=== PATIENT | male | born 1955 | race Caucasian/White ===

== ENCOUNTER 2019-05-16 01:22 | Inpatient (IN) | payer MEDICARE, OTHER ==
[2019-05-16] MEDS ORDERED: Morphine 4 MG/ML VIAL ONE (02:07)
[2019-05-16] MEDS ORDERED: Ondansetron PF 4 MG/2 ML Vial IVP PRN (03:57)
[2019-05-16] MEDS ORDERED: Acetaminophen 325 MG TAB PO PRN (03:57)
[2019-05-16] MEDS ORDERED: Sodium Chloride 0.9% 1,000 ML IV SCH (03:57)
[2019-05-16] MEDS ORDERED: Ondansetron ODT 4 MG TAB SL PRN (03:57)
[2019-05-16 08:25] LABS: Hemoglobin 8.8 g/dL (14.0-18.0); Reticulocyte Count 6.9 % (0.5-1.5)
[2019-05-16] MEDS ORDERED: Pantoprazole 40 MG VIAL IVP SCH (08:30)
--- NOTE | 2019-05-16 08:31 | PDOC.HHP ---
Hospitalist HPI - History of Present Illness Abdominal pain and constipation History of Present Illness: 63 yo male with lung and throat cancer presented to ER in [place] due to 6/10 lower abdominal pain x 2 days that is a pressure like sensation without radiation. No aggravating or relieving factors. He reports chronic black stools that he attributes to iron tablets. Reports nausea but no vomiting. Reports constipation. He was found to have anemia and FOBT +ve in ER and has been transferred to the current hospital. No fever, chills. Reports worsening SOB. No CP, palpitations, lightheadedness. Reports cough without sputum, wheezing. Reports urinary urgency and frequency. No burning or pain with urination. No blood in stools or urine. No hematemesis. No headache or changes in his vision. Lives alone and uses cane and walker. No recent sick contacts, travel history or eating out. Hospitalist ROS - Review of Systems All other systems reviewed; all pertinent +/- noted in HPI/Subj - Medication Medications: Active Medications Generic Name Dose Route Start Last Admin Trade Name Freq PRN Reason Stop Dose Admin Sodium Chloride 1,000 mls @ 125 mls/hr 05/16/19 03:57 05/16/19 04:00 Normal Saline 0.9% IV 05/16/19 15:00 1,000 mls .Q8H GLO Administration Hospitalist History - Past Medical History Source: patient, old records Cardiac: reports: CAD, HTN, ID, Hyperlipidemia Pulmonary: reports: COPD BAND LEADER: reports: CVA Gastrointestinal: reports: Constipation, GERD Heme/Onc: reports: Cancer (lung and throat) - Past Surgical History Other Surgical History: Left CEA Right lung biopsy - Family History Other Family History: Reviewed. not pertinent - Social History Smoking Status: Current every day smoker (1 PPD) Tobacco Type: cigarettes Alcohol: reports: Heavy (4 beers/day) Living Situation: Alone Activity level: uses cane/walker - Exam General Appearance: awake alert, ill appearing Eye: PERRL, anicteric sclera ENT: normocephalic atraumatic, dry oral mucosa Neck: supple, no JVD, no thyromegaly, no lymphadenopathy Heart: no murmur, no gallops, no rubs, normal peripheral pulses Heart - other findings: tachycardia present Respiratory - other findings: Reduced air entry bilaterally; Not using accessory muscles of respiration Gastrointestinal: soft, normal bowel sounds, no palpable masses, no guarding, no rigidity, tender to palpation (RLQ & LLQ) Extremities: no cyanosis, no clubbing, no edema Skin: normal turgor, no lesions, no rashes Skin - other findings: No decubitus ulcers; warm to touch Neurological: normal sensation to touch, no weakness Neurological - other findings: Left face deviation Musculoskeletal: normal tone, normal strength, diffuse muscle atrophy Psychiatric: normal behavior, A&O x 3 Psychiatric - other findings: appears anxious Hospitalist Results - Labs Result Diagrams: 05/16/19 07:40 Lab results: Hgb 8.8 g/dL (14.0-18.0) L 05/16/19 07:40 Hct 25.6 % (42.0-52.0) L 05/16/19 07:40 Additional comment: Lab reviewed. Hb 6. Sodium 126. FOBT +ve - Radiology Interpretation CT scan - abdomen Status: report reviewed by me (Bilateral pleural effusions; Constipation; distention of urinary bladder) Hospitalist H&P A/P - Problem (1) Anemia Code(s): D64.9 - ANEMIA, UNSPECIFIED Status: Acute Qualifiers: Other causes of anemia: acute posthemorrhagic Assessment and Plan: Likely related to GI bleed Has elevated retic count Admit to inpatient High risk due to risk of hemorrhagic shock Received 1 units Transfuse 2 more units due to CAD history Expected to stay 2 midnights Monitor H&H Q6h (2) Melena Code(s): K92.1 - MELENA Status: Acute Assessment and Plan: GI consulted NPO for now Accountant H&H Q6h Protonix bolus and drip Hold ASA & plavix IV fluids and PRBC transfusion (3) Respiratory failure Code(s): J96.90 - RESPIRATORY FAILURE, UNSP, UNSP W HYPOXIA OR HYPERCAPNIA Status: Chronic Qualifiers: Chronicity: chronic Respiratory failure complication: hypoxia Qualified Code(s): J96.11 - Chronic respiratory failure with hypoxia Assessment and Plan: Continue oxygen at 3L/mini Maintain sats 88-92% (4) GERD (gastroesophageal reflux disease) Code(s): K21.9 - GASTRO-ESOPHAGEAL REFLUX DISEASE WITHOUT ESOPHAGITIS Status: Chronic Qualifiers: Esophagitis presence: esophagitis presence not specified Qualified Code(s) : K21.9 - Gastro-esophageal reflux disease without esophagitis Assessment and Plan: Protonix drip for melena (5) HTN (hypertension) Code(s): I10 - ESSENTIAL (PRIMARY) HYPERTENSION Status: Chronic Qualifiers: Hypertension type: essential hypertension Qualified Code(s): I10 - Essential (primary) hypertension Assessment and Plan: Hold anti-HTN due to risk of hemorrhagic shock due to his GI bleed (6) CAD (coronary artery disease) Code(s): I25.10 - ATHSCL HEART DISEASE OF [place] CORONARY ARTERY W/O ANG PCTRS Status: Chronic Qualifiers: Coronary Disease-Associated Artery/Lesion type: [place] artery [place] vs. transplanted heart: [place] heart Associated angina: without angina Qualified Code(s): I25.10 - Atherosclerotic heart disease of [place] coronary artery without angina pectoris Assessment and Plan: He states never had a stent placed Cardio is Dr. José in [place] troponins Check EKG and ECHO Hold ASA & plavix due to GI bleed May need cardio opinion regarding future use (7) COPD (chronic obstructive pulmonary disease) Status: Chronic Qualifiers: COPD type: unspecified COPD Qualified Code(s): J44.9 - Chronic obstructive pulmonary disease, unspecified Assessment and Plan: Not in exacerbation Duonebs PRN (8) Dyslipidemia Code(s): E78.5 - HYPERLIPIDEMIA, UNSPECIFIED Status: Chronic Assessment and Plan: Hold statin therapy for now (9) History of CVA (cerebrovascular accident) Code(s): Z86.73 - PRSNL HX OF TIA (TIA), AND CEREB INFRC W/O RESID DEFICITS Status: Chronic Assessment and Plan: With residual right facial weakness Hold anticoagulants and statin for now (10) Lung cancer Code(s): C34.90 - MALIGNANT NEOPLASM OF UNSP PART OF UNSP BRONCHUS OR LUNG Status: Chronic Qualifiers: Laterality: unspecified laterality Lung location: unspecified part of lung Qualified Code(s): C34.90 - Malignant neoplasm of unspecified part of unspecified bronchus or lung Assessment and Plan: Has lung cancer and new diagnosis of throat cancer at [facility] last week On chemo Out pt. oncology follow up (11) Tobacco abuse Code(s): Z72.0 - TOBACCO USE Status: Chronic Assessment and Plan: Counselled regarding cessation Not willing to quit Nicotine patch PRN (12) Alcohol abuse Code(s): F10.10 - ALCOHOL ABUSE, UNCOMPLICATED Status: Chronic Assessment and Plan: Denies history of DTs or ETOH withdrawal seizures Monitor on telemetry Librium & ativan PRN withdrawals
[2019-05-16] MEDS ORDERED: Morphine 2 MG/ML SYRINGE SLOW IVP PRN (08:34)
[2019-05-16] MEDS ORDERED: Prevnar 13-Val Conj/PF 0.5 ML SYRINGE IM ONE (09:00)
[2019-05-16] MEDS ORDERED: chlordiazePOXIDE HCl 25 MG CAP PO PRN (09:07)
[2019-05-16] MEDS ORDERED: Nicotine 14 MG PATCH TD PRN (09:07)
[2019-05-16] MEDS ORDERED: Lorazepam 2 MG/ML VIAL SLOW IVP PRN (09:07)
[2019-05-16] MEDS: Sodium Chloride 0.9% 1,000 ML IV SCH (10:25)
[2019-05-16] MEDS: Pantoprazole 80 MG in Sodium Chloride 0.9% 100 ML IVP SCH ×2 (10:26→10:27)
[2019-05-16 11:43] VITALS: BMI 18.7
[2019-05-16 11:51] LABS: ALT (SGPT) 27 U/L (8-55); AST (SGOT) 17 U/L (5-34); Albumin 3.6 g/dL (3.4-4.8); Alkaline Phosphatase 78 U/L (40-110); Anion Gap 11 mmol/L (10-20); BUN (Urea Nitrogen) 11 mg/dL (8.4-25.7); Bilirubin, Total 0.8 mg/dL (0.2-1.2); Calc. Creatinine Clearance 93 mL/min (70-130); Calcium 8.7 mg/dL (7.8-10.44); Carbon Dioxide 25 mmol/L (23-31); Chloride 97 mmol/L (98-107); Estimated GFR-MDRD Greater than 90; Globulin 2.5 g/dL (2.4-3.5); Glucose 104 mg/dL (80-115); Potassium 3.8 mmol/L (3.5-5.1); Protein, Total 6.1 g/dL (5.8-8.1); Sodium 129 mmol/L (136-145)
[2019-05-16 12:09] LABS: Troponin I 0.011 ng/mL (< 0.028)
[2019-05-16 12:33] LABS: Anisocytosis SLIGHT = 6-15 cells (100X) (0-5/hpf); Eosinophils 1 % (0-10); Hemoglobin 8.5 g/dL (14.0-18.0); Lymphocytes 10 % (21-51); MDiff Complete? YES; Mean Corpuscular Hemoglobin 32.6 pg (27.0-31.0); Mean Corpuscular Volume 93.3 fL (78.0-98.0); Mean Platelet Volume 6.5 fL (7.4-10.4); Monocytes 14 % (0-10); Neutrophil 74 % (42-75); Platelet Count 313 thou/uL (130-400); Platelet Morphology Comment Appears Adequate; RBC Distribution Width 15.1 % (11.5-14.5); Red Blood Cell (RBC) Count 2.61 mill/uL (4.70-6.10)
[2019-05-16 14:32] LABS: Hemoglobin 7.7 g/dL (14.0-18.0)
[2019-05-16 14:53] LABS: Anion Gap 9 mmol/L (10-20); BUN (Urea Nitrogen) 9 mg/dL (8.4-25.7); Calc. Creatinine Clearance 108 mL/min (70-130); Calcium 8.4 mg/dL (7.8-10.44); Carbon Dioxide 27 mmol/L (23-31); Chloride 99 mmol/L (98-107); Estimated GFR-MDRD Greater than 90; Glucose 88 mg/dL (80-115); Sodium 131 mmol/L (136-145)
[2019-05-16 14:59] LABS: Troponin I 0.015 ng/mL (< 0.028)
[2019-05-16] MEDS: Neomycin-Polymyxin-Hc 7.5 ML BOT FS SCH ×3 (15:01→21:08)
[2019-05-16 17:09] LABS: Troponin I Less than 0.010 ng/mL (< 0.028)
[2019-05-16] MEDS: Mometasone/Formoterol 120 PUFF INHALER INH SCH (18:09)
[2019-05-16 18:34] LABS: Hemoglobin 7.2 g/dL (14.0-18.0)
--- NOTE | 2019-05-16 18:47 | EKG ---
Test Reason : Blood Pressure : / mmHG Vent. Rate : 101 BPM Atrial Rate : 101 BPM P-R Int : 158 ms QRS Dur : 086 ms QT Int : 350 ms P-R-T Axes : 089 013 034 degrees QTc Int : 453 ms Sinus tachycardia Otherwise normal ECG No previous ECGs available Confirmed by JUVENTINO STACK, DR. Lagunas ([id number]) on 05/16/2019 6:47:21 PM Referred By: METTA Confirmed By:DR. Janneth JAUREGUI MD
[2019-05-16 18:55] LABS: Anion Gap 11 mmol/L (10-20); BUN (Urea Nitrogen) 8 mg/dL (8.4-25.7); Calc. Creatinine Clearance 112 mL/min (70-130); Calcium 8.1 mg/dL (7.8-10.44); Carbon Dioxide 24 mmol/L (23-31); Chloride 100 mmol/L (98-107); Estimated GFR-MDRD Greater than 90; Glucose 84 mg/dL (80-115); Potassium 3.6 mmol/L (3.5-5.1); Sodium 131 mmol/L (136-145)
[2019-05-16] MEDS: Pantoprazole 40 MG VIAL IVP SCH (21:08)
[2019-05-16] MEDS: Fleet Enema 133 ML BOT PR SCH (21:09)
[2019-05-17 00:45] LABS: Anion Gap 9 mmol/L (10-20); BUN (Urea Nitrogen) 7 mg/dL (8.4-25.7); Calc. Creatinine Clearance 106 mL/min (70-130); Carbon Dioxide 25 mmol/L (23-31); Chloride 101 mmol/L (98-107); Estimated GFR-MDRD Greater than 90; Glucose 87 mg/dL (80-115); Potassium 3.8 mmol/L (3.5-5.1); Sodium 131 mmol/L (136-145)
--- NOTE | 2019-05-17 00:49 | CON ---
DATE OF CONSULTATION: 05/16/2019 HISTORY OF PRESENT ILLNESS: Mr. Gonzales is a 63-year-old gentleman, who has a history of lung cancer, diagnosed at [place], [place] in 2013, stage IV, for which he has been on maintenance chemotherapy with Erbitux and Ellipta. He apparently had recurrence diagnosed earlier this year on the PET scan. About 3 weeks ago, he was having problems with change in his voice and repetitive problems with anemia, which could not be apparently discovered with endoscopy and he was sent to ENT, and a throat cancer was discovered. This past Tuesday, he was seen at [facility] in [place], [place], and treatment plan is going to be made with his oncologist in [place]. Apparently, he has had problems with anemia. He states he had 3 upper endoscopies in the past year in [place] and they could find no reason for his anemia. At one point, he states they may have cauterized a little spot, but were not sure what it was and he also had a colonoscopy in the last year in [place], specifically at [facility] by his report and no etiology was found. For this, he was placed on iron and intermittently he has had to be transfused. When I asked, he states his last hemoglobin about 2 weeks ago was 7.2 with his oncologist in [place]. More recently, as he was getting more and more ill, his sister wanted to move closer to him and so he moved close to [place] with her, but he began to have problems with lower rectal abdominal pain, and felt he was very constipated, which he attributes to his iron pills. In the emergency room, he was Hemoccult positive. He was found to have a hemoglobin of 6, so he was transferred here. He had one small bowel movement this morning, but still feels constipated. He wants to eat. He denies any hematemesis. He denies any dysphagia. REVIEW OF SYSTEMS: Negative for chest pain. Positive for fatigue. Positive for shortness of breath. Positive for change in voice and difficulty breathing at times. Positive for weight loss. PAST MEDICAL HISTORY: 1. Coronary artery disease, hypertension, prior UT, hyperlipidemia, COPD. He has a cancer of the lung diagnosed in 2013, which was stage IV and is on maintenance therapy, but has had a recurrent nodule in the chest recently that has been treated at [facility] in [place]. He has had a new diagnosis apparently in the past 3 weeks of a throat cancer. He states it is on the left side. 2. Prior CVA, which resulted in swallowing issues and some dysphonia. PAST SURGICAL HISTORY: Left carotid endarterectomy and right lung biopsy. FAMILY HISTORY: Negative for colorectal cancer or liver disease. SOCIAL HISTORY: Currently everyday smoker pack per day. Drinks about 4 beers per day. He has moved up to stay with his sister more recently. MEDICATIONS: At home; 1. Calcium and vitamin D. 2. Atorvastatin. 3. Aspirin 81 mg a day. 4. Albuterol fluticasone. 5. Albuterol and Ellipta inhaler. 6. Plavix. 7. Irbesartan. 8. Gabapentin. 9. Folic acid. 10. Neomycin eyedrops. 11. Multivitamin. 12. Folic acid daily. 13. Metoprolol 25 mg p.o. daily. 14. Tramadol daily. 15. Tamsulosin daily. 16. Pantoprazole daily. 17. He has also been on iron pills daily. 18. He also reports he has been on Protonix at home. Medications here; 1. Albuterol. 2. Librium. 3. Lorazepam. 4. Dulera inhaler. 5. Morphine p.r.n. 6. Cortisporin ophthalmic ointment. 7. Nicotine patch. 8. Protonix drip. 9. Sodium chloride. 10. Thiamine. PHYSICAL EXAMINATION: GENERAL: He is resting in bed. He is comfortable. He is cachectic and thin. He is afebrile. VITAL SIGNS: Temperature is 97.5, pulse 95, respirations 22, blood pressure 110/69. HEENT: He is nonicteric. His conjunctivae and sclerae are pale and clear respectively. Oropharynx without any palpable lesions. NECK: Without any palpable lesions. LUNGS: Decreased breath sounds at the bases. HEART: Regular rate and rhythm without clicks or murmurs. ABDOMEN: Soft and nontender with no rebound or guarding. EXTREMITIES: No clubbing, cyanosis, or edema. There is muscle wasting diffusely. RECTAL: Reveals fecal impaction. ASSESSMENT: 1. Anemia. This seems to have been chronic. He notes he has been transfused many times in the past several months. He has had upper and lower endoscopies in [place] with no overt etiology found. He notes he is on chronic iron supplementation for this. His most recent hemoglobin in the outpatient setting 2 weeks ago was 7.2. His presentation hemoglobin was 6. It is now up at 7.7 after 1 unit of blood. He has had one small bowel movement today. It does not appear that he has an acute GI bleed. There is a CAT scan of the abdomen that raises a question of thickening proximal stomach, but there is no distention. More recently, compounding all this, he has been diagnosed with throat cancer, which he states his ENT doctor thinks has been bleeding for some time. He has seen [facility] this past Tuesday, but no disposition or plan has been made yet. He denies any overt stridor at this point in time. 2. New diagnosis of throat cancer. No overt stridor at this time. No palpable mass. Apparently, this has been bleeding a little bit. 3. Coronary artery disease, on Plavix and aspirin. 4. Metastatic lung cancer, on maintenance therapy. RECOMMENDATIONS: 1. I would transfuse him to keep hemoglobin over 7. At this time, it does not seem he has any acute hemorrhage. I would recheck his hemoglobin tomorrow morning. If it is stable, I would stop the Protonix drip and place him on oral Protonix q.12 and we will let him start a liquid diet. 2. With regard to his extensive history, we will ask the medical records, to get records from [facility] and endoscopies tomorrow. 3. If the patient has signs of acute GI hemorrhage, we will consider embarking on endoscopy. At the same time, he would probably need to be seen by ENT. 4. At this time, he does not need to be seen by ENT tonight if there are no overt signs of throat bleeding. 5. We will start enemas to help with his impaction. We will follow along with you. These findings and recommendations were discussed with the patient and admitting physician, Dr. Zuñiga. Job ID: [id number]
[2019-05-17] MEDS: Sodium Chloride 0.9% 1,000 ML IV SCH (02:13)
[2019-05-17 05:31] LABS: Hemoglobin 8.2 g/dL (14.0-18.0)
[2019-05-17 05:54] LABS: ALT (SGPT) 23 U/L (8-55); AST (SGOT) 17 U/L (5-34); Albumin 3.4 g/dL (3.4-4.8); Alkaline Phosphatase 73 U/L (40-110); Anion Gap 12 mmol/L (10-20); BUN (Urea Nitrogen) 5 mg/dL (8.4-25.7); Bilirubin, Total 0.6 mg/dL (0.2-1.2); Calc. Creatinine Clearance 104 mL/min (70-130); Calcium 8.4 mg/dL (7.8-10.44); Carbon Dioxide 24 mmol/L (23-31); Chloride 98 mmol/L (98-107); Estimated GFR-MDRD Greater than 90; Globulin 2.5 g/dL (2.4-3.5); Glucose 89 mg/dL (80-115); Potassium 3.4 mmol/L (3.5-5.1); Protein, Total 5.9 g/dL (5.8-8.1); Sodium 131 mmol/L (136-145)
[2019-05-17 06:02] LABS: Band 7 % (5-11); Eosinophils 1 % (0-10); Hemoglobin 7.7 g/dL (14.0-18.0); Lymphocytes 17 % (21-51); MDiff Complete? YES; Mean Corpuscular HGB CONC 33.2 g/dL (32.0-36.0); Mean Corpuscular Volume 93.3 fL (78.0-98.0); Mean Platelet Volume 6.6 fL (7.4-10.4); Monocytes 13 % (0-10); Neutrophil 61 % (42-75); Platelet Count 300 thou/uL (130-400); RBC Distribution Width 15.4 % (11.5-14.5); White Blood Cell (WBC) Count 3.7 thou/uL (4.8-10.8)
[2019-05-17 06:26] LABS: Anion Gap 12 mmol/L (10-20); BUN (Urea Nitrogen) 5 mg/dL (8.4-25.7); Calc. Creatinine Clearance 106 mL/min (70-130); Calcium 8.5 mg/dL (7.8-10.44); Carbon Dioxide 22 mmol/L (23-31); Chloride 101 mmol/L (98-107); Estimated GFR-MDRD Greater than 90; Glucose 84 mg/dL (80-115); Potassium 3.8 mmol/L (3.5-5.1); Sodium 131 mmol/L (136-145)
[2019-05-17] MEDS: Mometasone/Formoterol 120 PUFF INHALER INH SCH ×2 (06:56→18:35)
[2019-05-17] MEDS: Neomycin-Polymyxin-Hc 7.5 ML BOT FS SCH ×4 (09:04→21:21)
[2019-05-17] MEDS: Pantoprazole 40 MG VIAL IVP SCH ×2 (09:08→21:21)
[2019-05-17] MEDS: Fleet Enema 133 ML BOT PR SCH ×2 (09:08→21:22)
[2019-05-17] MEDS: Folic Acid 1 MG TAB PO SCH (09:08)
[2019-05-17] MEDS: Thiamine 100 MG TAB PO SCH (09:14)
--- NOTE | 2019-05-17 12:26 | PRG ---
DATE OF SERVICE: 05/17/2019 SUBJECTIVE: Mr. Gonzales has had a couple of enemas and has had good bowel movements. He states his rectum feels much better. His sister is at the bedside today. She confirms the history given yesterday. She is not sure when he has had his previous endoscopies. He wants to go ahead and eat. OBJECTIVE: VITAL SIGNS: Temperature 97.5, T-max 98 blood pressure 132/74. GENERAL: He is resting comfortably in bed. Oropharynx without lesions. NECK: Supple. No adenopathy. LUNGS: Clear . ABDOMEN: Nontender. LABORATORY DATA: Hemoglobin is 8.2 this morning. Sodium 131, potassium 3.8, BUN and creatinine 5 and 0.5. ASSESSMENT: Anemia of unclear etiology. This seems to be chronic to some degree. He is on iron pills at home. He has had a colonoscopy and upper endoscopy last year at [facility] in [place], [place]. He states he was told there were no signs of bleeding there. He has had a CAT scan here that showed a fecal impaction, which is improved and he has had some questionable thickening of the stomach. His anemia may be related to his throat cancer and may be a component of chronic disease from his metastatic lung cancer. RECOMMENDATIONS: EGD tomorrow based on the abnormal CAT scan. We will check iron, B12, folate, and ferritin. We will await records from [facility]. I am not inclined to repeat his colonoscopy as it was performed within the last year. I do not think we get a very good prep as we are trying to get rid of a fecal impaction at this point in time. Job ID: [id number]
--- NOTE | 2019-05-17 12:37 | PDOC.HOSPP ---
- Subjective Encounter Date: 05/17/19 Encounter Time: 12:00 Subjective: Pt. received multiple enemas and has had BMs. Has been on clear liquid diet and tolerating it well. No N/V. Denies any further abdominal pain. No fever or chills. - Objective Vital Signs & Weight: Vital Signs (12 hours) Temp Pulse Resp BP Pulse Ox 05/17/19 11:38 97.7 F 91 20 111/61 100 05/17/19 08:00 97.5 F L 98 16 132/74 100 05/17/19 06:57 100 05/17/19 03:42 98.0 F 87 18 121/70 66 L Weight Admit Weight 127 lb 3.2 oz Weight 127 lb I&O: 05/16/19 05/17/19 05/18/19 06:59 06:59 06:59 Intake Total 375 1765 240 Output Total 1250 Balance 375 515 240 Result Diagrams: 05/17/19 05:12 05/17/19 05:11 Hospitalist ROS - Medication Medications: Active Medications Generic Name Dose Route Start Last Admin Trade Name Freq PRN Reason Stop Dose Admin Albuterol/Ipratropium 3 ml 05/16/19 13:00 05/17/19 06:55 Duoneb NEB Not Given L9NP-OH GLO Folic Acid 1 mg 05/17/19 09:00 05/17/19 09:08 Folvite PO 1 mg DAILY GLO Administration Mometasone Furoate/Formoterol Fumar 2 puff 05/16/19 18:30 05/17/19 06:56 Dulera 100 Mcg/5 Mcg Inhaler INH Not Given BID-RT GLO Neomycin/Polymyxin/Hydrocortisone 0 drop 05/16/19 13:00 05/17/19 12:33 Cortisporin Opth FS 4 drop QID GLO Administration Nicotine 14 mg 05/16/19 09:07 05/16/19 10:28 Nicoderm Patch TD 14 mg Q24HR PRN Administration withdrawals Pantoprazole Sodium 40 mg 05/16/19 21:00 05/17/19 09:08 Protonix IVP 40 mg Q12HR GLO Administration Sodium Biphosphate/Sodium Phosphate 133 ml 05/16/19 21:00 05/17/19 09:08 Fleet Enema NC 133 ml Q12HR GLO Administration Sodium Chloride 10 ml 05/16/19 09:00 05/17/19 09:08 Flush - Normal Saline IVF 10 ml Q12HR GLO Administration Thiamine HCl 100 mg 05/17/19 09:00 05/17/19 09:14 Thiamine PO 100 mg DAILY GLO Administration - Exam General Appearance: NAD, awake alert Neck: supple, symmetric, no JVD, no thyromegaly Heart: RRR, no murmur, no gallops, normal peripheral pulses Respiratory: CTAB, no wheezes, no rales Respiratory - other findings: reduced air entry bilaterally Gastrointestinal: soft, non-tender, non-distended, normal bowel sounds Hosp A/P (1) Anemia Code(s): D64.9 - ANEMIA, UNSPECIFIED Status: Acute Qualifiers: Other causes of anemia: acute posthemorrhagic (2) Melena Code(s): K92.1 - MELENA Status: Acute (3) Respiratory failure Code(s): J96.90 - RESPIRATORY FAILURE, UNSP, UNSP W HYPOXIA OR HYPERCAPNIA Status: Chronic Qualifiers: Chronicity: chronic Respiratory failure complication: hypoxia Qualified Code(s): J96.11 - Chronic respiratory failure with hypoxia (4) GERD (gastroesophageal reflux disease) Code(s): K21.9 - GASTRO-ESOPHAGEAL REFLUX DISEASE WITHOUT ESOPHAGITIS Status: Chronic Qualifiers: Esophagitis presence: esophagitis presence not specified Qualified Code(s) : K21.9 - Gastro-esophageal reflux disease without esophagitis (5) HTN (hypertension) Code(s): I10 - ESSENTIAL (PRIMARY) HYPERTENSION Status: Chronic Qualifiers: Hypertension type: essential hypertension Qualified Code(s): I10 - Essential (primary) hypertension (6) CAD (coronary artery disease) Code(s): I25.10 - ATHSCL HEART DISEASE OF [place] CORONARY ARTERY W/O ANG PCTRS Status: Chronic Qualifiers: Coronary Disease-Associated Artery/Lesion type: [place] artery [place] vs. transplanted heart: [place] heart Associated angina: without angina Qualified Code(s): I25.10 - Atherosclerotic heart disease of [place] coronary artery without angina pectoris (7) COPD (chronic obstructive pulmonary disease) Status: Chronic Qualifiers: COPD type: unspecified COPD Qualified Code(s): J44.9 - Chronic obstructive pulmonary disease, unspecified (8) Dyslipidemia Code(s): E78.5 - HYPERLIPIDEMIA, UNSPECIFIED Status: Chronic (9) History of CVA (cerebrovascular accident) Code(s): Z86.73 - PRSNL HX OF TIA (TIA), AND CEREB INFRC W/O RESID DEFICITS Status: Chronic (10) Lung cancer Code(s): C34.90 - MALIGNANT NEOPLASM OF UNSP PART OF UNSP BRONCHUS OR LUNG Status: Chronic Qualifiers: Laterality: unspecified laterality Lung location: unspecified part of lung Qualified Code(s): C34.90 - Malignant neoplasm of unspecified part of unspecified bronchus or lung (11) Tobacco abuse Code(s): Z72.0 - TOBACCO USE Status: Chronic (12) Alcohol abuse Code(s): F10.10 - ALCOHOL ABUSE, UNCOMPLICATED Status: Chronic - Plan out of bed/ambulate, DVT proph w/SCDs Hospitalist A/P - Problem (1) Anemia Unknown etiology. GI on board. Plan for EGD tomorrow. Appreciate input and assistance. Continue to monitor H&H. Transfuse PRN High risk due to need for inpatient endoscopy and further evaluation for his anemia At risk of worsening anemia and hemorrhagic shock (2) Melena GI on board EGD tomorrow Continue PPI IV BID Hold ASA & plavix. Resume when cleared by GI IV fluids and PRBC transfusion (3) Respiratory failure Chronic hypoxic Continue oxygen at 3L/mini Maintain sats 88-92% (4) GERD (gastroesophageal reflux disease) Protonix IV BID (5) HTN (hypertension) Hold anti-HTN due to risk of hemorrhagic shock due to his GI bleed (6) CAD (coronary artery disease) He states never had a stent placed Cardio is Dr. José in [facility] with preserved EF. Moderate MR Hold ASA & plavix due to GI bleed May need cardio opinion regarding future use depending on EGD results (7) COPD (chronic obstructive pulmonary disease) Not in exacerbation Duonebs PRN (8) Dyslipidemia Hold statin therapy for now (9) History of CVA (cerebrovascular accident) With residual right facial weakness Hold anticoagulants and statin for now (10) Lung cancer Has lung cancer and new diagnosis of throat cancer On chemo Out pt. oncology follow up (11) Tobacco abuse Counselled regarding cessation Not willing to quit Nicotine patch PRN (12) Alcohol abuse Librium & ativan PRN withdrawals PO thiamine and folic acid
[2019-05-18 05:26] LABS: ALT (SGPT) 18 U/L (8-55); AST (SGOT) 14 U/L (5-34); Albumin 2.9 g/dL (3.4-4.8); Alkaline Phosphatase 61 U/L (40-110); Anion Gap 6 mmol/L (10-20); BUN (Urea Nitrogen) 5 mg/dL (8.4-25.7); Bilirubin, Total 0.4 mg/dL (0.2-1.2); Calc. Creatinine Clearance 99 mL/min (70-130); Calcium 8.3 mg/dL (7.8-10.44); Carbon Dioxide 28 mmol/L (23-31); Chloride 104 mmol/L (98-107); Estimated GFR-MDRD Greater than 90; Globulin 2.2 g/dL (2.4-3.5); Glucose 108 mg/dL (80-115); Iron Binding Capacity, Total 210 mcg/dL (261-462); Potassium 3.4 mmol/L (3.5-5.1); Protein, Total 5.1 g/dL (5.8-8.1); Sodium 135 mmol/L (136-145)
[2019-05-18 05:28] LABS: Eosinophils 1 % (0-10); Hemoglobin 7.5 g/dL (14.0-18.0); Hypochromia SLIGHT = 6-15 cells (100X) (0-5/hpf); Lymphocytes 8 % (21-51); MDiff Complete? YES; Mean Corpuscular HGB CONC 34.1 g/dL (32.0-36.0); Mean Corpuscular Hemoglobin 32.2 pg (27.0-31.0); Mean Corpuscular Volume 94.5 fL (78.0-98.0); Mean Platelet Volume 6.2 fL (7.4-10.4); Metamyelocyte 1 % (0-0); Monocytes 7 % (0-10); Neutrophil 83 % (42-75); Platelet Count 308 thou/uL (130-400); Platelet Morphology Comment Appears Adequate; RBC Distribution Width 15.7 % (11.5-14.5); Red Blood Cell (RBC) Count 2.33 mill/uL (4.70-6.10); White Blood Cell (WBC) Count 4.4 thou/uL (4.8-10.8)
[2019-05-18 05:47] LABS: Ferritin 243.6 ng/mL (22-322)
[2019-05-18] MEDS: Mometasone/Formoterol 120 PUFF INHALER INH SCH (07:24)
[2019-05-18] MEDS: Neomycin-Polymyxin-Hc 7.5 ML BOT FS SCH ×4 (09:09→20:28)
[2019-05-18] MEDS: Fleet Enema 133 ML BOT PR SCH ×2 (09:10→20:29)
[2019-05-18] MEDS: Pantoprazole 40 MG VIAL IVP SCH ×2 (09:10→20:28)
[2019-05-18] MEDS ORDERED: Ketamine 50 MG/ML (10ML VIAL) ONE (09:44)
[2019-05-18] MEDS: Thiamine 100 MG TAB PO SCH (09:51)
[2019-05-18] MEDS: Folic Acid 1 MG TAB PO SCH (09:51)
[2019-05-18] MEDS ORDERED: PROPOFOL 200 MG/20 ML VIAL ONE (10:23)
[2019-05-18] MEDS ORDERED: Mometasone/Formoterol 120 PUFF INHALER INH PRN (11:16)
--- NOTE | 2019-05-18 13:21 | PDOC.HOSPP ---
- Subjective Encounter Date: 05/18/19 Encounter Time: 12:00 Subjective: Pt. had EGD today AM by GI. Currently, consuming solid food without any distress. No N/V/D/C. No abdominal pain. No CP, SOB. - Objective Vital Signs & Weight: Vital Signs (12 hours) Temp Pulse Resp BP Pulse Ox 05/18/19 12:10 97.7 F 85 14 128/68 100 05/18/19 08:05 97.6 F 87 12 130/82 99 05/18/19 04:05 97.6 F 88 14 119/69 99 Weight Admit Weight 127 lb 3.2 oz Weight 127 lb I&O: 05/17/19 05/18/19 05/19/19 06:59 06:59 06:59 Intake Total 1765 720 Output Total 1250 Balance 515 720 Result Diagrams: 05/18/19 04:43 05/18/19 04:43 Hospitalist ROS - Medication Medications: Active Medications Generic Name Dose Route Start Last Admin Trade Name Freq PRN Reason Stop Dose Admin Folic Acid 1 mg 05/17/19 09:00 05/18/19 09:51 Folvite PO Not Given DAILY [facility] Neomycin/Polymyxin/Hydrocortisone 0 drop 05/16/19 13:00 05/18/19 13:03 Cortisporin Opth FS Not Given QID GLO Nicotine 14 mg 05/16/19 09:07 05/16/19 10:28 Nicoderm Patch TD 14 mg Q24HR PRN Administration withdrawals Pantoprazole Sodium 40 mg 05/16/19 21:00 05/18/19 09:10 Protonix IVP 40 mg Q12HR GLO Administration Sodium Biphosphate/Sodium Phosphate 133 ml 05/16/19 21:00 05/17/19 21:22 Fleet Enema HI Not Given Q12HR GLO Sodium Chloride 10 ml 05/16/19 09:00 05/17/19 21:22 Flush - Normal Saline IVF 10 ml Q12HR GLO Administration Thiamine HCl 100 mg 05/17/19 09:00 05/18/19 09:51 Thiamine PO Not Given DAILY GLO - Exam ENT: normocephalic atraumatic Neck: supple, symmetric, no thyromegaly Heart: RRR, no murmur, no gallops, normal peripheral pulses Respiratory: CTAB, no wheezes, normal chest expansion Gastrointestinal: soft, non-tender, non-distended, normal bowel sounds Hosp A/P (1) Anemia Code(s): D64.9 - ANEMIA, UNSPECIFIED Status: Acute Qualifiers: Other causes of anemia: acute posthemorrhagic (2) Melena Code(s): K92.1 - MELENA Status: Acute (3) Respiratory failure Code(s): J96.90 - RESPIRATORY FAILURE, UNSP, UNSP W HYPOXIA OR HYPERCAPNIA Status: Chronic Qualifiers: Chronicity: chronic Respiratory failure complication: hypoxia Qualified Code(s): J96.11 - Chronic respiratory failure with hypoxia (4) GERD (gastroesophageal reflux disease) Code(s): K21.9 - GASTRO-ESOPHAGEAL REFLUX DISEASE WITHOUT ESOPHAGITIS Status: Chronic Qualifiers: Esophagitis presence: esophagitis presence not specified Qualified Code(s) : K21.9 - Gastro-esophageal reflux disease without esophagitis (5) HTN (hypertension) Code(s): I10 - ESSENTIAL (PRIMARY) HYPERTENSION Status: Chronic Qualifiers: Hypertension type: essential hypertension Qualified Code(s): I10 - Essential (primary) hypertension (6) CAD (coronary artery disease) Code(s): I25.10 - ATHSCL HEART DISEASE OF [place] CORONARY ARTERY W/O ANG PCTRS Status: Chronic Qualifiers: Coronary Disease-Associated Artery/Lesion type: enterprise artery [place] vs. transplanted heart: enterprise heart Associated angina: without angina Qualified Code(s): I25.10 - Atherosclerotic heart disease of [place] coronary artery without angina pectoris (7) COPD (chronic obstructive pulmonary disease) Status: Chronic Qualifiers: COPD type: unspecified COPD Qualified Code(s): J44.9 - Chronic obstructive pulmonary disease, unspecified (8) Dyslipidemia Code(s): E78.5 - HYPERLIPIDEMIA, UNSPECIFIED Status: Chronic (9) History of CVA (cerebrovascular accident) Code(s): Z86.73 - PRSNL HX OF TIA (TIA), AND CEREB INFRC W/O RESID DEFICITS Status: Chronic (10) Lung cancer Code(s): C34.90 - MALIGNANT NEOPLASM OF UNSP PART OF UNSP BRONCHUS OR LUNG Status: Chronic Qualifiers: Laterality: unspecified laterality Lung location: unspecified part of lung Qualified Code(s): C34.90 - Malignant neoplasm of unspecified part of unspecified bronchus or lung (11) Tobacco abuse Code(s): Z72.0 - TOBACCO USE Status: Chronic (12) Alcohol abuse Code(s): F10.10 - ALCOHOL ABUSE, UNCOMPLICATED Status: Chronic - Plan Hospitalist A/P - Problem (1) Anemia s/p EGD. Case DW GI No lesions to explaing anemia Likely related to throat cancer Transfuse PRN (2) Melena resolved Case DW GI Likely related to PO iron Awaiting colonoscopy reports from [place] (3) Respiratory failure Chronic hypoxic Continue oxygen at 3L/mini Maintain sats 88-92% (4) GERD (gastroesophageal reflux disease) Protonix PO BID GI on board (5) HTN (hypertension) Monitor BP and resume meds PRN (6) CAD (coronary artery disease) He states never had a stent placed On ASA & Plavix due to having had a CEA more than a year ago Will resume ASA at DC without any plavix due to risk of bleeding (7) COPD (chronic obstructive pulmonary disease) Not in exacerbation Duonebs PRN (8) Dyslipidemia Hold statin therapy for now (9) 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 oncology follow up (11) Tobacco abuse Counselled regarding cessation Not willing to quit Nicotine patch PRN (12) Alcohol abuse Librium & ativan PRN withdrawals PO thiamine and folic acid
[2019-05-19 05:14] LABS: Hemoglobin 7.9 g/dL (14.0-18.0)
[2019-05-19] MEDS ORDERED: Polyethylene Glycol 3350 17 GM Packet PO SCH (09:00)
[2019-05-19] MEDS: Folic Acid 1 MG TAB PO SCH (09:10)
[2019-05-19] MEDS: Thiamine 100 MG TAB PO SCH (09:10)
[2019-05-19] MEDS: Pantoprazole 40 MG VIAL IVP SCH (09:10)
[2019-05-19] MEDS: Neomycin-Polymyxin-Hc 7.5 ML BOT FS SCH ×2 (09:19→13:29)
[2019-05-19] MEDS: Fleet Enema 133 ML BOT PR SCH (09:21)
--- NOTE | 2019-05-19 11:26 | PRG ---
DATE OF SERVICE: 05/19/2019 SUBJECTIVE: Mr. Gonzales has had a good bowel movements today with enema. He has had no bleeding. Talking with the nurses, his records will not be able to be sent from [facility] until Tuesday. OBJECTIVE: VITAL SIGNS: Temperature is 97, pulse 86, and blood pressure 116/67. ABDOMEN: Soft and nontender. LABORATORY DATA: Hemoglobin is 7.9 today, stable since the , white count 4.4, and platelet count 308. Iron 27, TIBC 27, ferritin 243, folate 14, and B12 of 702. ASSESSMENT: 1. Anemia likely of chronic disease, stable. Esophagogastroduodenoscopy showed no lesions in the esophagus. He reportedly has a throat cancer, which I did not see at the esophagogastroduodenoscopy. He reports he had a colonoscopy a year ago at [facility], which was normal and I would not repeat this at this time. 2. Fecal impaction, likely related to a sedentary state medical problems and his iron. RECOMMENDATIONS: When he goes home, he can continue his iron. Restart a bowel regimen. He has moved here to live with his sister in the [facility]. He needs to be referred to Primary Care and Oncology on discharge. I would be happy to see him in followup, but really there is nothing to do from a GI standpoint at this time. Again, his bowel regimen needs to continue with MiraLAX daily. We will sign off. If I can be of any further assistance in his care, please do not hesitate to contact me. Above recommendations were discussed with the patient, nursing staff, and . Job ID: [id number]
[2019-05-19 15:26] VITALS: BP 160/78; TEMP 98
--- NOTE | 2019-05-19 17:40 | DIS ---
DATE OF ADMISSION: 05/16/2019 DATE OF DISCHARGE: 05/19/2019 ADMISSION DIAGNOSES: 1. Acute blood loss anemia. 2. Melena. 3. Chronic hypoxic respiratory failure. 4. Gastroesophageal reflux disease without esophagitis. 5. Essential hypertension. 6. Coronary artery disease. 7. Chronic obstructive pulmonary disease. 8. Dyslipidemia. 9. History of cerebrovascular accident, status post left-side carotid endarterectomy. 10. Lung cancer. 11. Tobacco abuse. 12. Alcohol use. 13. New diagnosis of throat cancer. DISCHARGE DIAGNOSES: 1. Acute blood loss anemia, likely related to throat cancer. 2. Melena, status post endoscopy without any active lesions. 3. Chronic hypoxic respiratory failure. 4. Gastroesophageal reflux disease without esophagitis. 5. Essential hypertension. 6. Coronary artery disease. 7. Chronic obstructive pulmonary disease without exacerbation. 8. Dyslipidemia. 9. History of cerebrovascular accident, status post left-sided carotid endarterectomy more than a year ago. 10. Lung cancer and new diagnosis of throat cancer. 11. Tobacco abuse. 12. Alcohol use. CONSULTATIONS: Frank Pritchett MD, Gastroenterology. PERTINENT PROCEDURES AND IMAGING: The patient underwent an endoscopy by Dr. Pritchett on 05/18/2019, which did not reveal any active sites of bleeding. The patient underwent an echocardiogram, which revealed a preserved ejection fraction of 55% to 60% with moderate mitral regurgitation. Trivial aortic regurgitation, mild tricuspid regurgitation were also seen. HOSPITAL COURSE: The patient is a 63-year-old male with a history of COPD, on home oxygen at 3 L around the time and history of lung cancer and recently diagnosed throat cancer, who presented to the emergency department due to anemia. He was found to have hemoglobin of 6.1 and was transfused. He also reported melena. Hence, Gastroenterology was consulted. The patient was evaluated by Dr. Pritchett. The patient underwent endoscopy on 05/18/2019. Endoscopy did not reveal any active sites of bleeding. The patient reported having recent colonoscopy as an outpatient. Hence, the patient was not felt to require colonoscopy. The patient also complained of abdominal pain, which was felt to be related to constipation. Hence, the patient underwent disimpaction and enemas. His constipation and abdominal pain have resolved. He has been cleared by Gastroenterology to be discharged with outpatient followup with Oncology, primary care physician, and Gastroenterology. As the patient is stable and has not had any further bleeding and he has been cleared by Gastroenterology, the patient has been deemed stable to be discharged home today. On the day of discharge, the patient is sitting in the bed and appears to be in mild distress due to his shortness of breath. Auscultation of the lungs revealed reduced breath sounds bilaterally. Palpation of the abdomen did not reveal any tenderness. DISCHARGE INSTRUCTIONS: 1. Discharge disposition is home with Home Health. 2. Discharge followup with primary care physician in 7 to 10 days, Dr. Frank Pritchett in 3 to 4 weeks, Oncology in 2 to 3 weeks. DISCHARGE MEDICATIONS: Reconciled. Please review the reconciliation report. DISCHARGE ACTIVITY: As tolerated. DISCHARGE DIET: Regular diet as tolerated. Total time taken for discharge - 40 minutes. Job ID: [id number]
[2019-05-19] MEDS ORDERED: Senokot S 8.6-50 MG TAB PO SCH (21:00)
--- NOTE | 2019-05-21 13:51 | OP ---
DATE OF PROCEDURE: 05/18/2019 PROCEDURE PERFORMED: Esophagogastroduodenoscopy. PREPROCEDURE DIAGNOSES: 1. Anemia, chronic, multifactorial. 2. Possible acute drop in blood count from baseline, although the patient noticed when he was getting his care in [place], [place], similar to what it was on presentation here. 3. Questionable history of recent diagnosis of throat cancer. 4. Recent colonoscopy within the past year at [facility] in [place], reported normal per the patient. POSTPROCEDURE DIAGNOSIS: Normal esophagogastroduodenoscopy with no stigmata of bleeding. RECOMMENDATIONS: 1. We would obtain endoscopy report from [place], [place]. Per the patient, these were normal there last year. Hemoccult-positive stool may be explained by recently diagnosed throat cancer, although this was not seen at the time of endoscopy. PROCEDURE IN DETAIL: After the patient was informed of the risk, benefits, and possible complications of endoscopy including perforation, bleeding, reaction to medication, and aspiration, informed consent was obtained. The patient was brought to endoscopy suite, where he was sedated in gradual fashion. Once he was comfortable, a bite block was placed inside the orifice. The endoscope was advanced through the esophagus, stomach, and second and third portions of the duodenum and was slowly removed. There was good visualization of the mucosa. There were no overt pharyngeal lesions or throat cancers identified from what I could see. The esophagus appeared normal. The stomach was normal in forward and retroflexed views and had normal extension. Duodenum was normal in the third portion. No bleeding sites were seen. The scope was removed. The patient tolerated the procedure well. There were no complications. Job ID: [id number]
== END 2019-05-19 15:26 | disposition home health service (06) | DRG 147 ==
LOC: ERS 01:22 → ONC 03:59 → OBSVTOIN 08:26 → 2NO 13:13
PROVIDERS: ADMIT Internal Medicine; ATTEND Internal Medicine
PROC: 30233N1 Transfusion of Nonautologous Red Blood Cells into Peripheral Vein, Percutaneous Approach (ICD-10-PCS; principal; 2019-05-16)
DX: C14.0 Malignant neoplasm of pharynx, unspecified (principal); E87.1 Hypo-osmolality and hyponatremia; J96.11 Chronic respiratory failure with hypoxia; C34.90 Malignant neoplasm of unspecified part of unspecified bronchus or lung; K92.1 Melena; D62 Acute posthemorrhagic anemia; I25.10 Atherosclerotic heart disease of native coronary artery without angina pectoris; I10 Essential (primary) hypertension; I25.2 Old myocardial infarction; E78.5 Hyperlipidemia, unspecified; J44.9 Chronic obstructive pulmonary disease, unspecified; K21.9 Gastro-esophageal reflux disease without esophagitis; F17.210 Nicotine dependence, cigarettes, uncomplicated; Z86.73 Personal history of transient ischemic attack (TIA), and cerebral infarction without residual deficits; F10.10 Alcohol abuse, uncomplicated; K56.41 Fecal impaction; D63.0 Anemia in neoplastic disease
CPT/HCPCS: 36415; 80053; 82607; 82728; 82746; 83540; 83550; 83930; 83935; 84300; 84484; 84550; 85014; 85018; 85025; 85046; 90471; 90670; 90732; 93005; 93010; 93306; 96374; C9113; G0009; J2270; J2704; J3411; J3490; J7620

== ENCOUNTER 2019-07-05 07:53 | Outpatient (CLI) | payer MEDICARE, OTHER ==
--- NOTE | 2019-07-05 10:14 | PET ---
EXAM: PET/CT HISTORY: Lung cancer TECHNIQUE: PET scanning with CT attenuation correction was performed from the vertex to the proximal thighs foll owing the intravenous administration of 12.4 millicuries [id number]. COMPARISON: None. CORRELATION: CT abdomen pelvis dated 05/15/2019 FINDINGS: There is intense uptake in a mass involving the left vocal cord with an SUV of 29. No airam hypermetabolism is seen in the neck, mediastinum, hilar regions, axillary, abdomen or pelvis . No hypermetabolic activity is seen in the 8 mm nodule (SUV 1.9) involving the anterior aspect of the right upper lobe. No hypermetabolic liver, adrenal or skeletal lesions are seen. There is physiologic activity in the GI and tracts and the brain. The CT scan used for attenuation correction demonstrates no evidence of left pleural effusion or asci leonarda. There is a tiny probably loculated right pleural effusion. IMPRESSION: 1. Mass suspicious for malignancy in the region of the left vocal cord. ENT consultation and direct v isualization is recommended. 2. No evidence of distant metastatic disease.
== END 2019-07-05 07:54 | disposition home or self-care (01) ==
LOC: PET 07:53
PROVIDERS: ATTEND Internal Medicine Hematology & Oncology
DX: C34.90 Malignant neoplasm of unspecified part of unspecified bronchus or lung (principal); J38.3 Other diseases of vocal cords
CPT/HCPCS: 78815; A9552

== ENCOUNTER 2019-07-09 08:46 | Outpatient (CLI) | payer MEDICARE, OTHER ==
--- NOTE | 2019-07-09 10:18 | CT ---
CT neck soft tissues with contrast: DATE: 07/09/2019 HISTORY: The provider order states: ICD-10: "C 34.11 malignant neoplasm of upper lobe, right bronchus or lung. " "Compared with prior" 63-year-old male. COMPARISON: No prior neck CTs other than the attenuation correction CT for the PET scan of 07/05/2019 FINDINGS: High-grade centrilobular emphysematous changes in the visualized portions of the bilateral upper lobe s. At the anterior aspect of the anterior segment of the right upper lobe, close to the anterior pleural surface, there is an approximately 1.3 x 0.9 x 0.9 cm noncalcified pulmonary nodule with stel late, irregular margins. On the PET scan, it has minimally increased uptake, SUV 1.9 maximum. There is a large approximately 2.6 x 3.4 x 4.4 cm soft tissue density neoplastic tumor mass in the le ft side of the laryngeal skeleton, probably arising from the left piriform sinus. It was very FDG avid on the PET scan. It destroys the adjacent left side of the thyroid cartilage, protruding slightl y outside of the boundaries of the laryngeal skeleton. The left side of the cricoid cartilage is sclerotic, and may or may not be invaded. The mass involves the left para glottic fat and the left ar yepiglottic fold, and displaces the supraglottic and glottic laryngeal airway slightly to the right. There is no cervical lymphadenopathy. Trachea is patent and clear. No significant upper mediastinal l ymphadenopathy. Old healed right mid clavicular fracture deformity. No major pathology identified involving the submandibular, parotid, retropharyngeal, pharyngeal mucosal, posterior cervical, perive rtebral, cooperative extension agent, sublingual spaces. IMPRESSION: 1. 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 2. No cervical lymphadenopathy. 3. T4a N0 cM0, stage MAURICIO 4. Small right upper lobe stellate pulmonary nodule with low FDG uptake. The morphology is still some what suspicious for primary lung cancer, and therefore serial follow-up chest CTs are recommended, beginning in 3 months. 5. High-grade centrilobular emphysema.
== END 2019-07-09 08:47 | disposition home or self-care (01) ==
LOC: SCSCT 08:46
PROVIDERS: ATTEND Internal Medicine Hematology & Oncology
DX: C34.11 Malignant neoplasm of upper lobe, right bronchus or lung (principal); J43.2 Centrilobular emphysema; R91.1 Solitary pulmonary nodule
CPT/HCPCS: 70491

== ENCOUNTER 2019-07-18 08:14 | Outpatient (CLI) | payer MEDICARE, OTHER ==
--- NOTE | 2019-07-18 08:40 | RAD ---
EXAM: Chest 2 views: HISTORY: Dyspnea COMPARISON: None. FINDINGS: There is a normal-sized cardiomediastinal silhouette. There is a small right pleural effusion with ad jacent atelectasis. Increased interstitial markings are present. The bones are unremarkable. IMPRESSION: No evidence of acute cardiopulmonary disease
== END 2019-07-18 08:15 | disposition home or self-care (01) ==
LOC: RAD 08:14
PROVIDERS: ATTEND Internal Medicine Critical Care Medicine
DX: R06.00 Dyspnea, unspecified (principal)
CPT/HCPCS: 71046

== ENCOUNTER 2019-08-28 06:28 | Observation (INO) | payer MEDICARE, OTHER ==
[2019-08-27 17:37] VITALS: BMI 17.3
[2019-08-28] MEDS ORDERED: Midazolam HCl 2 mg/2 ml Vial ONE (08:58)
[2019-08-28] MEDS ORDERED: Ketamine 50 MG/ML (10ML VIAL) ONE (08:59)
[2019-08-28] MEDS ORDERED: PROPOFOL 200 MG/20 ML VIAL ONE (09:56)
--- NOTE | 2019-08-28 11:06 | OP ---
DATE OF PROCEDURE: 08/28/2019 PROCEDURES PERFORMED: Esophagogastroduodenoscopy with percutaneous endoscopic gastrostomy tube placement. PREPROCEDURE DIAGNOSES: 1. Oropharyngeal dysphagia with 20 pounds weight loss. 2. Only able to drink about two cans of Ensure per day to three. 3. Receiving radiation therapy for throat cancer. POSTPROCEDURE DIAGNOSES: 1. Esophagogastroduodenoscopy with percutaneous endoscopic gastrostomy tube placement by Ponsky pull technique, successful. 2. 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 ANESTHESIA: TIVA, Ancef 2 g. RECOMMENDATIONS: The patient will be admitted for 23-hour observation for PEG tube use teaching, observation, and also he will get radiation today. He will be discharged tomorrow morning if doing well, then go to radiation after that. DESCRIPTION OF PROCEDURE: After the patient was informed of the risks, benefits, possible complication of endoscopy including perforation, bleeding, reaction to medication, and aspiration, informed consent was obtained. The patient was brought to endoscopy suite, where he was sedated in gradual fashion. Once he was comfortable, a bite block was placed inside the orifice. The endoscope was advanced through esophagus, stomach, and second and third portions of the duodenum and slowly removed. There was good visualization of the mucosa. The esophagus was notable for tongue of semi-pink mucosa advancing about 2 cm above the GE junction. There was no nodularity, ulceration, or erosions or atypical appearing mucosa unless other than being what appeared to be area of short-segment Ramirez's. There was no evidence of strictures. There was some ulceration and narrowing inflammation in the pharyngeal region just at the upper esophageal sphincter. This was consistent with his radiation probably therapy. There was no evidence of Nicole esophagus. The scope was advanced in the stomach, which was normal in forward and retroflexed views. The duodenum was normal in the second and third portion. Adequate place for PEG tube placement was identified by transillumination and finger indentation. The PEG tube was placed by Ponsky pull technique. Second look confirmed good placement. Scope was removed. The patient tolerated the procedure well with no complications. Job ID: [id number]
[2019-08-28] MEDS: Morphine 2 MG/ML SYRINGE SLOW IVP PRN ×3 (12:35→22:19)
[2019-08-28] MEDS: Sodium Chloride 0.9% 1,000 ML IV SCH (12:37)
[2019-08-29] MEDS: Sodium Chloride 0.9% 1,000 ML IV SCH ×3 (01:50→18:42)
[2019-08-29] MEDS: Morphine 2 MG/ML SYRINGE SLOW IVP PRN ×5 (04:21→21:45)
[2019-08-29] MEDS ORDERED: Pancrelipase DR 12000 1 CAP PER TUBE PRN (10:14)
[2019-08-29] MEDS ORDERED: Sodium Bicarbonate Tab 325 MG TAB PER TUBE PRN (10:14)
--- NOTE | 2019-08-29 11:56 | DIS ---
DATE OF ADMISSION: 08/28/2019 DATE OF DISCHARGE: 08/29/2019 This was an observation admission following a gastrostomy tube placement. PRIMARY DIAGNOSES: 1. Head and neck cancer undergoing radiation with associated dysphagia. 2. Protein calorie malnutrition. PROCEDURES DURING THE HOSPITAL STAY: Esophagogastroduodenoscopy with percutaneous endoscopic gastrostomy tube placement. SECONDARY DIAGNOSIS: Ramirez esophagus. HOSPITAL COURSE: Mr. Gonzales underwent EGD with PEG tube placement on 08/28/[address] Pritchett. He was monitored overnight, and this morning, the PEG site was evaluated and appears healthy. The external bumper was loosened from 2.5 cm to 3.5 cm. He is scheduled for radiation treatment later this morning. He has had some twinges of pain that lasts for seconds at a time, on and off through the night. IMPRESSION: 1. Head and neck cancer with associated oropharyngeal dysphagia, undergoing radiation treatment. 2. Successful placement of percutaneous endoscopic gastrostomy tube. He will start bolus feeds today with recommendations placed by the dietitian. He can discharge home today. He was advised to clean the PEG site with soap and water daily. MEDICATIONS: Discharge medications should be the same as prior to admission and include; 1. Polyethylene glycol. 2. Hydrocodone with acetaminophen. 3. Tamsulosin. 4. Metoprolol. 5. Multiple vitamin. 6. Irbesartan. 7. Gabapentin. 8. Folic acid. 9. Fluticasone with umeclidinium/vilanterol (Trelegy Ellipta). Medications continued; 1. Atorvastatin. 2. Aspirin. 3. Albuterol. 4. Calcium with vitamin D. Dietitian has left recommendation for bolus tube feeds with standard 1.5 calorie feeds with fiber with one 230 mL can six times daily with 30 mL free water flushes before and after each feed. Job ID: [id number]
--- NOTE | 2019-08-29 14:31 | CT ---
CT Abdomen W Con History: Problems with PEG tube. Abdominal pain. Comparison: PET/CT June 2019 Findings: There is small volume free intraperitoneal gas. A gastrostomy tube is in place in good posi tion. No contrast is seen within the right external iliac artery. High-grade atherosclerotic plaque of the aorta. Small volume gas tracking along the left biliary system. No hydronephrosis. Small renal cysts. Impression: 1. Small volume free intraperitoneal gas likely sequelae of recent gastrostomy tube interrogation whi ch is in good position. If there has been no recent gastrostomy tube evaluation, perforated viscus would be expected. 2. Occluded right external iliac artery, age indeterminate. Nonemergent follow-up conventional angiog magalys may be beneficial if clinically warranted. 3. Round atelectasis in both lower lobes. 4. High-grade atherosclerotic plaque of the aorta with multifocal moderate narrowing of the SMA dista l branches. 5. Focal fatty infiltration of the liver hepatic segment IVb.
[2019-08-29] MEDS ORDERED: Iopamidol-370 76% 500 ML 1 ML ONE (15:27)
--- NOTE | 2019-08-29 15:29 | PRG ---
DATE OF SERVICE: 08/29/2019 SUBJECTIVE: Mr. Gonzales underwent his radiation therapy this morning without incident. He started his tube feeds this afternoon and he receives 60 mL of the Jevity and had increase in epigastric abdominal pain around the PEG site with that. He was yelling out in pain for 15 minutes and then the pain subsided and has since resolved. He had a CT scan of the abdomen that showed the tube to be in good position. OBJECTIVE: VITAL SIGNS: Temperature is 98.2, pulse 86, blood pressure 120/76. GENERAL: He is in no acute distress. Alert and oriented x3. LUNGS: Clear to auscultation bilaterally. HEART: Regular rate and rhythm without murmur. ABDOMEN: Soft. He has tenderness directly around the PEG site. The PEG site itself appears healthy. His bowel sounds are active. EXTREMITIES: No lower extremity edema. IMPRESSION: 1. Head and neck cancer, undergoing radiation treatment. 2. Oropharyngeal dysphagia, status post percutaneous endoscopic gastrostomy tube placement yesterday. 3. Postoperative pain around the gastrostomy site. He had a marked increase in his pain once he started the feeds. CT scan shows the tube to be in good position. His exam is benign and his abdomen shows no peritoneal signs. RECOMMENDATIONS: 1. We will monitor him as we advance his feeding overnight again for pain control. 2. I encouraged him to get up and walk even though he has had some pain at the site. He is now up walking around the [place] and appears to be doing well from this standpoint. 3. Anticipate discharge home tomorrow morning. Job ID: [id number]
[2019-08-30] MEDS: Morphine 2 MG/ML SYRINGE SLOW IVP PRN (06:22)
[2019-08-30] MEDS: Sodium Chloride 0.9% 1,000 ML IV SCH (06:30)
[2019-08-30 07:41] VITALS: BP 158/81
[2019-08-30 10:24] VITALS: TEMP 98
== END 2019-08-30 11:57 | disposition home or self-care (01) ==
LOC: SDC 06:28 → SJJU 10:00
PROVIDERS: ADMIT Internal Medicine Gastroenterology; ATTEND Internal Medicine Gastroenterology
PROC: 0DH63UZ Insertion of Feeding Device into Stomach, Percutaneous Approach (ICD-10-PCS; principal; 2019-08-28)
DX: R13.12 Dysphagia, oropharyngeal phase (principal); C76.0 Malignant neoplasm of head, face and neck; K22.70 Barrett's esophagus without dysplasia; E46 Unspecified protein-calorie malnutrition; G89.18 Other acute postprocedural pain; Z79.899 Other long term (current) drug therapy; Z79.82 Long term (current) use of aspirin; Z68.1 Body mass index [BMI] 19.9 or less, adult
CPT/HCPCS: 43246; 74160; 77386 ×2; 96361 ×2; 96374; 96376 ×3; G0378 ×3; J0690; J2250; J2270; J2704; Q9967

== ENCOUNTER 2019-09-14 14:01 | Observation (INO) | payer MEDICARE, OTHER ==
[2019-09-14] MEDS ORDERED: Albuterol Sulfate 2.5 mg/3 ml Neb ONE ×2 (14:41)
[2019-09-14 15:13] LABS: #Lymphocytes 0.3 thou/uL (1.20-3.40); #Neutrophils 7.4 thou/uL (1.40-6.50); %Basophils 0.5 % (0.0-1.0); %Eosinophils 0.1 % (0.0-10.0); %Lymphocytes 3.1 % (21.0-51.0); %Monocytes 11.7 % (0.0-10.0); %Neutrophils 84.6 % (42.0-75.0); Hemoglobin 13.2 g/dL (14.0-18.0); Mean Corpuscular HGB CONC 33.3 g/dL (32.0-36.0); Mean Corpuscular Hemoglobin 27.7 pg (27.0-31.0); Mean Corpuscular Volume 83.3 fL (78.0-98.0); Mean Platelet Volume 6.3 fL (7.4-10.4); Platelet Count 486 thou/uL (130-400); RBC Distribution Width 15.5 % (11.5-14.5); Red Blood Cell (RBC) Count 4.75 mill/uL (4.70-6.10); White Blood Cell (WBC) Count 8.7 thou/uL (4.8-10.8)
--- NOTE | 2019-09-14 15:17 | RAD ---
CHEST ONE VIEW: 09/14/19 HISTORY: Cough. Fever, and shortness of breath. COMPARISON: 07/18/19. FINDINGS: Normal cardiac silhouette. Pulmonary vessels and hilum are normal. Costophrenic angles are blunted. S table bilateral pleural effusions and pleural thickening. Lungs continue to be hyperinflated with chr onic parenchymal changes. No pneumothorax. Bilateral apical pleural thickening. Diffuse bone deminera lization. Multiple old right rib fractures. IMPRESSION: No significant change. Stable hyperinflation and fibrotic changes. POS: PPP
[2019-09-14 15:33] LABS: ALT (SGPT) 18 U/L (8-55); AST (SGOT) 17 U/L (5-34); Albumin 3.8 g/dL (3.4-4.8); Alkaline Phosphatase 102 U/L (40-110); Anion Gap 12 mmol/L (10-20); BUN (Urea Nitrogen) 10 mg/dL (8.4-25.7); Bilirubin, Total 0.4 mg/dL (0.2-1.2); Calc. Creatinine Clearance 0 mL/min (70-130); Calcium 9.4 mg/dL (7.8-10.44); Carbon Dioxide 28 mmol/L (23-31); Chloride 94 mmol/L (98-107); Estimated GFR-MDRD Greater than 90; Globulin 3.5 g/dL (2.4-3.5); Glucose 121 mg/dL (80-115); Potassium 4.3 mmol/L (3.5-5.1); Protein, Total 7.3 g/dL (5.8-8.1); Sodium 130 mmol/L (136-145)
[2019-09-14] MEDS ORDERED: Acetaminophen 325 MG TAB PO PRN (16:06)
[2019-09-14] MEDS ORDERED: Ondansetron PF 4 MG/2 ML Vial IVP PRN (16:06)
[2019-09-14] MEDS ORDERED: predniSONE 20 MG TAB PO SCH (16:15)
--- NOTE | 2019-09-14 16:45 | HP ---
CHIEF COMPLAINT: Shortness of breath. HISTORY OF PRESENT ILLNESS: The patient is a 64-year-old male with a past medical history of coronary artery disease; hypertension; hyperlipidemia; CVA; COPD, on oxygen at night; and head and neck cancer, status post recent radiation therapy. The patient was in the hospital about 2 weeks ago for placement of a PEG tube. He presented to the ER today with complaints of cough and worsening shortness of breath. He was found to have increasing hypoxia over his baseline and some wheezing on examination. Chest x-ray revealed hyperinflation. REVIEW OF SYSTEMS: Negative except as above. PAST MEDICAL HISTORY: As above. PAST SURGICAL HISTORY: 1. Right lung biopsy. 2. Left CEA. 3. PEG tube placement. FAMILY HISTORY: Not pertinent. SOCIAL HISTORY: The patient is a current everyday smoker, he drinks beer every day, no history of illicit drug abuse. PHYSICAL EXAMINATION: GENERAL: The patient is alert and oriented x3. HEENT: Head is normocephalic and atraumatic. Extraocular muscles are intact. NECK: Supple. CARDIAC: Normal S1 and S2 with regular rate and rhythm. No murmurs, rubs, or gallops on cardiovascular exam. LUNGS: Bilateral wheezing. ABDOMEN: Soft, nontender, and nondistended. NEUROLOGICAL: No new focal deficits. ASSESSMENT: 1. [id number] hypoxic respiratory failure. 2. Chronic obstructive pulmonary disease exacerbation. 3. Possible radiation pneumonitis. 4. Hypertension. 5. Hyperlipidemia. 6. Gastroesophageal reflux disease. 7. Coronary artery disease. 8. Dyslipidemia. 9. Head and neck cancer. PLAN: The patient will be placed in observation. We will start nebulizer treatments and corticosteroid and monitor his response within the next 12 hours. Job ID: [id number]
[2019-09-14] MEDS: Aluminum & Magnesium Hydroxide 60 ML, Lidocaine 2% Viscous Solution 30 ML, diphenhydrAM... SSW PRN ×3 (19:41→22:52)
[2019-09-14] MEDS: Atorvastatin Calcium 10 MG TAB PO SCH (20:27)
[2019-09-14] MEDS: Gabapentin 300 MG CAP PO SCH (20:27)
[2019-09-14] MEDS: HYDROcodone/Acetaminophen 5/325 mg Tablet PO PRN (20:28)
[2019-09-15] MEDS: HYDROcodone/Acetaminophen 5/325 mg Tablet PO PRN ×5 (00:45→21:14)
[2019-09-15] MEDS: Aluminum & Magnesium Hydroxide 60 ML, Lidocaine 2% Viscous Solution 30 ML, diphenhydrAM... SSW PRN ×6 (00:47→21:16)
[2019-09-15 06:10] LABS: #Lymphocytes 0.2 thou/uL (1.20-3.40); #Monocytes 0.7 thou/uL (0.11-0.59); #Neutrophils 5.7 thou/uL (1.40-6.50); %Basophils 0.3 % (0.0-1.0); %Eosinophils 0.1 % (0.0-10.0); %Monocytes 9.8 % (0.0-10.0); %Neutrophils 86.7 % (42.0-75.0); Hemoglobin 12.6 g/dL (14.0-18.0); Mean Corpuscular HGB CONC 33.3 g/dL (32.0-36.0); Mean Corpuscular Hemoglobin 27.8 pg (27.0-31.0); Mean Corpuscular Volume 83.5 fL (78.0-98.0); Mean Platelet Volume 6.2 fL (7.4-10.4); Platelet Count 424 thou/uL (130-400); RBC Distribution Width 15.3 % (11.5-14.5); Red Blood Cell (RBC) Count 4.53 mill/uL (4.70-6.10); White Blood Cell (WBC) Count 6.6 thou/uL (4.8-10.8)
[2019-09-15 06:28] LABS: Anion Gap 15 mmol/L (10-20); BUN (Urea Nitrogen) 9 mg/dL (8.4-25.7); Calc. Creatinine Clearance 120 mL/min (70-130); Calcium 9.6 mg/dL (7.8-10.44); Carbon Dioxide 26 mmol/L (23-31); Chloride 93 mmol/L (98-107); Estimated GFR-MDRD Greater than 90; Glucose 128 mg/dL (80-115); Potassium 4.7 mmol/L (3.5-5.1); Sodium 129 mmol/L (136-145)
[2019-09-15] MEDS: predniSONE 20 MG TAB PO SCH (08:39)
[2019-09-15] MEDS: Metoprolol Tartrate 25 MG TAB PO SCH (08:39)
[2019-09-15] MEDS: Gabapentin 300 MG CAP PO SCH ×3 (08:39→21:14)
[2019-09-15] MEDS: Aspirin 81 mg Enteric Coated Tablet PO SCH (08:39)
[2019-09-15] MEDS: Tamsulosin HCl 0.4 MG CAP PO SCH (08:39)
[2019-09-15] MEDS: Enoxaparin Sodium 40 MG/0.4 ML SYRINGE SC SCH (08:40)
[2019-09-15 10:50] VITALS: BMI 16.7
--- NOTE | 2019-09-15 11:28 | PDOC.HOSPP ---
- Subjective Encounter Date: 09/15/19 Subjective: Feeling better. Still complaining of cough. - Objective Vital Signs & Weight: Vital Signs (12 hours) Temp Pulse Resp BP Pulse Ox 09/15/19 08:00 98.1 F 84 18 130/71 99 09/15/19 06:55 78 20 96 09/15/19 04:02 98.1 F 80 18 126/80 95 09/15/19 00:31 96 09/15/19 00:15 98 F 82 22 H 130/81 99 Weight Admit Weight 159 lb 13.362 oz Weight 123 lb Result Diagrams: 09/15/19 06:01 09/15/19 06:01 Hospitalist ROS - Medication Medications: Active Medications Generic Name Dose Route Start Last Admin Trade Name Freq PRN Reason Stop Dose Admin Hydrocodone Bitart/Acetaminophen 1 tab 09/14/19 16:09 09/15/19 08:39 [place] 5/325 PO 1 tab Q4H PRN Administration Pain Albuterol/Ipratropium 3 ml 09/14/19 19:00 09/15/19 06:55 Duoneb NEB 3 ml [id number] GLO Administration Aspirin 81 mg 09/15/19 09:00 09/15/19 08:39 Ecotrin PO 81 mg DAILY GLO Administration Atorvastatin Calcium 10 mg 09/14/19 21:00 09/14/19 20:27 Lipitor PO 10 mg QPM GLO Administration Al Hydroxide/Mg Hydroxide 60 0 ml 09/14/19 18:34 09/15/19 08:38 ml/ Lidocaine HCl 30 ml/ SSW 10 ml Diphenhydramine HCl 75 mg PRN PRN Administration Mouth Irritation Enoxaparin Sodium 40 mg 09/15/19 09:00 09/15/19 08:40 Lovenox SC 40 mg 0900 GLO Administration Gabapentin 300 mg 09/14/19 21:00 09/15/19 08:39 Neurontin PO 300 mg TID GLO Administration Metoprolol Tartrate 25 mg 09/15/19 09:00 09/15/19 08:39 Lopressor PO 25 mg DAILY GLO Administration Prednisone 40 mg 09/15/19 08:00 09/15/19 08:39 Prednisone PO 40 mg QAM-WM GLO Administration Tamsulosin HCl 0.4 mg 09/15/19 09:00 09/15/19 08:39 Flomax PO 0.4 mg DAILY GLO Administration - Exam General Appearance: awake alert ENT: normocephalic atraumatic Neck: supple, no JVD Heart: RRR, no murmur, no gallops, no rubs, normal peripheral pulses Respiratory: CTAB, no wheezes, no rales, no ronchi, normal chest expansion Gastrointestinal: soft, non-tender, non-distended, normal bowel sounds Hosp A/P (1) COPD exacerbation Code(s): J44.1 - CHRONIC OBSTRUCTIVE PULMONARY DISEASE W (ACUTE) EXACERBATION Status: Acute (2) Dyslipidemia Code(s): E78.5 - HYPERLIPIDEMIA, UNSPECIFIED Status: Chronic (3) HTN (hypertension) Code(s): I10 - ESSENTIAL (PRIMARY) HYPERTENSION Status: Chronic Qualifiers: (4) Tobacco abuse Code(s): Z72.0 - TOBACCO USE Status: Chronic - Plan Symptoms improving with NEBs and steroids. Continues to cough. Add Levofloxacin. DC tomorrow.
[2019-09-15] MEDS: Atorvastatin Calcium 10 MG TAB PO SCH (21:15)
[2019-09-16] MEDS: HYDROcodone/Acetaminophen 5/325 mg Tablet PO PRN (03:26)
[2019-09-16] MEDS: Gabapentin 300 MG CAP PO SCH (09:21)
[2019-09-16] MEDS: Aspirin 81 mg Enteric Coated Tablet PO SCH (09:21)
[2019-09-16] MEDS: predniSONE 20 MG TAB PO SCH (09:21)
[2019-09-16] MEDS: Tamsulosin HCl 0.4 MG CAP PO SCH (09:21)
[2019-09-16] MEDS: Metoprolol Tartrate 25 MG TAB PO SCH (09:21)
[2019-09-16] MEDS: Enoxaparin Sodium 40 MG/0.4 ML SYRINGE SC SCH (09:23)
[2019-09-16] MEDS: Aluminum & Magnesium Hydroxide 60 ML, Lidocaine 2% Viscous Solution 30 ML, diphenhydrAM... SSW PRN ×2 (09:24→13:41)
[2019-09-16 11:41] VITALS: BP 122/76; TEMP 97.6
--- NOTE | 2019-09-17 09:52 | DIS ---
DATE OF ADMISSION: 09/14/2019 DATE OF DISCHARGE: 09/16/2019 DISCHARGE DIAGNOSES: 1. Chronic obstructive pulmonary disease exacerbation. 2. Dyslipidemia. 3. Hypertension. 4. Tobacco use. DISCHARGE MEDICATIONS: 1. Tessalon Perles 100 mg orally three times a day as needed for cough. 2. Levofloxacin 500 mg orally daily for 5 days. 3. Prednisone 20 mg orally twice daily for 5 days. 4. Aspirin 81 mg orally daily. 5. Atorvastatin 10 mg orally nightly. 6. Gabapentin 300 mg orally three times a day. 7. Metoprolol tartrate 25 mg orally daily. 8. Tamsulosin 0.4 mg orally daily. 9. Albuterol (ProAir) two puffs inhaled as needed for shortness of breath or wheezing. 10. Trelegy 100-62.5-25 one inhaled daily. 11. Folic acid 1 mg orally daily. 12. [place] 10 mg orally every 6 hours as needed for pain. 13. Irbesartan 75 mg orally daily. 14. MiraLAX 17 g orally daily. HISTORY OF PRESENT ILLNESS AND BRIEF HOSPITAL COURSE: A 64-year-old male with past medical history of coronary artery disease, hypertension, hyperlipidemia, CVA, and COPD on home O2 in addition to history of head and neck cancer, status post recent radiation therapy. The patient presented to the hospital with complaints of worsening shortness of breath and increased oxygen requirement at home. He was found to be diffusely wheezing in the ER and was admitted to the hospital with impression of COPD exacerbation. He was managed with scheduled nebulized treatments, antibiotics, and corticosteroids and his symptoms improved within 48 hours. The patient was prescribed levofloxacin and prednisone to continue at home for 5 days. Job ID: [id number]
--- NOTE | 2019-09-20 14:19 | EKG ---
Test Reason : Blood Pressure : / mmHG Vent. Rate : 095 BPM Atrial Rate : 095 BPM P-R Int : 154 ms QRS Dur : 084 ms QT Int : 334 ms P-R-T Axes : 040 -22 042 degrees QTc Int : 419 ms Normal sinus rhythm Normal ECG Reconfirmed by ANA MONTALVO ([id number]), editor greeting card DONN DONALDSON ([id number]) on 09/20/2019 2:19:00 PM Referred By: Confirmed By:ANA Townsend
== END 2019-09-16 14:09 | disposition home or self-care (01) ==
LOC: ERS 14:01 → T4-B 16:06
PROVIDERS: ADMIT Internal Medicine; ATTEND Internal Medicine
DX: J44.1 Chronic obstructive pulmonary disease with (acute) exacerbation (principal); J96.21 Acute and chronic respiratory failure with hypoxia; F17.210 Nicotine dependence, cigarettes, uncomplicated; I25.10 Atherosclerotic heart disease of native coronary artery without angina pectoris; I10 Essential (primary) hypertension; C76.0 Malignant neoplasm of head, face and neck; E78.5 Hyperlipidemia, unspecified; Z79.82 Long term (current) use of aspirin; Z79.899 Other long term (current) drug therapy; Z86.73 Personal history of transient ischemic attack (TIA), and cerebral infarction without residual deficits
CPT/HCPCS: 71045; 80048; 80053; 83880; 84484; 85025 ×2; 93005; 94640 ×3; 97139 ×2; 99285; G0378 ×4; U0001; 36415; J1650; J7512; J7611; J7620; Q0163